=== PATIENT | female | born 1960 | race Caucasian/White ===

== ENCOUNTER 2024-06-27 10:50 | Outpatient (CLI) | payer MEDICARE, SELFPAY ==
--- NOTE | ~2024-06-27 | XR_ITS ---
EXAM: XR lumbar spine 2-3V DATE: 06/27/2024 11:23 HISTORY: back pain and tenderness x yrs . COMPARISON: None available. FINDINGS: 5 nonrib-bearing lumbar-type vertebral bodies. Pedicles intact. Normal vertebral body alig nment. Vertebral body heights preserved. Disc space narrowing and/or marginal osteophytosis at all fredis mbar levels. Vacuum phenomenon at L4-5 and L5-S1. Possible pars defects at L5. Moderate lower lumbar facet hypertrophy and sclerosis. No fracture or dislocation. Atherosclerotic aortic calcification wit hout evident aneurysm IMPRESSION: Multilevel lumbar degenerative disc disease, severe at L4-5 and L5-S1. Moderate lower lum bar facet arthropathy. Possible pars defect at L5, consider confirmation with bilateral obliques of t he lumbar spine. Reviewed, dictated and finalized at location K. R SAFETY INSTRUCTOR IMPRESSION: Multilevel lumbar degenerative disc disease, severe at L4-5 and L5- S1. Moderate lower lumbar facet arthropathy. Possible pars defect at L5, consid er confirmation with bilateral obliques of the lumbar spine.
[2024-06-27 11:18] LABS: Basophils Absolute Auto 0.03 K/mm3 (0.00-0.10); Basophils Percent Auto 0.5 % (0.0-1.0); Eosinophils Absolute Auto 0.07 K/mm3 (0.02-0.50); Eosinophils Percent Auto 1.2 % (1.0-6.0); Hematocrit 44.2 % (35.0-42.0); Hemoglobin 14.8 g/dL (11.7-13.8); Immature Granulocyte Absolute 0.03 K/mm3 (0.00-0.00); Immature Granulocyte Percent A 0.5 % (0.0-0.0); Lymphocytes Absolute Auto 1.83 K/mm3 (1.10-4.50); Lymphocytes Percent Auto 32.6 % (18.0-42.0); Mean Corpuscular HGB Conc 33.5 g/dL (32-36); Mean Corpuscular Hemoglobin 29.2 pg (27.0-31.0); Mean Corpuscular Volume 87.2 fL (78.0-102.0); Mean Platelet Volume 10.8 fl (9.2-11.8); Monocytes Absolute Auto 0.45 K/mm3 (0.10-0.90); Neutrophils Percent Auto 57.2 % (50.0-70.0); Platelet Count Result 244 K/mm3 (150-420); Red Blood Count 5.07 M/mm3 (4.20-5.40); Red Cell Distribution Width 12.7 % (11.6-14.4); White Blood Count 5.6 K/mm3 (4.8-10.8)
[2024-06-27 11:19] LABS: Add Urine Microscopic? YES; Bilirubin Urine Negative (Negative); Blood Urine Trace-intact (Negative); Glucose Urine UA Negative (Negative); Ketones Urine Negative (Negative); Leukocyte Esterase Ur 2+ (Negative); Nitrate Urine Negative (Negative); Protein Urine Trace (Negative); Urobilinogen Urine 0.2 mg/dL (0.2-1.0)
[2024-06-27 11:27] LABS: Appearance Urine Sl Cloudy (Clear); Bacteria Urine 1+ /hpf; Color Urine Yellow (Yellow); RBC Urine 0-2 /hpf (0-2); Squamous Epithelial Cell Urine Many /hpf (Few); WBC Urine 21-30 /hpf (0-3)
[2024-06-27 11:44] LABS: Alanine Aminotransferase 54 U/L (14-59); Alkaline Phosphatase 111 U/L (46-116); Anion Gap 8 mmol/L (4-12); Aspartate Amino Transferase 25 U/L (15-37); Bilirubin,Total 0.6 mg/dL (0.00-1.00); Blood Urea Nitrogen 24 mg/dL (7-18); Carbon Dioxide 33 mmol/L (21-32); Chloride 102 mmol/L (98-108); Cholesterol 261 mg/dL (0-200); Creatine Kinase 185 U/L (26-192); Estimated Glomerular Filt Rate 50; Glucose 110 mg/dL (70-99); HDL Direct 44 mg/dL (40-60); LDL Cholesterol Calculated 162 mg/dL (<130); Osmolality Calculated 301 mOsm/kg (285-295); Potassium 4.2 mmol/L (3.5-5.1); Sodium 143 mmol/L (136-145); Thyroid Stimulating Hormone 4.14 uIU/mL (0.36-3.74); Total Protein 7.5 g/dL (6.4-8.2); Triglycerides 277 mg/dL (0-150)
[2024-06-27 11:45] LABS: CRP < 0.5 mg/dL (0.0-0.9)
--- OUTSIDE RECORDS SUMMARY | 2024-06-27 12:57 | XMS_ITS | Encounter Summary ---
Author Organization [facility] Address [address] [place] [address] Care Team Providers Care Director Semiconductor Name Role Phone Mya Gandhi DO Primary Care Provider [phone] Encounter Details Date Type Department Care Team (Late st Contact Info) Description 06/14/2018 Telephone [facility] [address] [address] [place] [address] Group, [facility] [address] [place] [address] Social History Tobacco Use Types Packs/Day Years Used Date Smoking Tobacco: Never Assessed Sex and Gender Information Value Date Recorded Sex Assigned at Female 09/30/2019 4:07 PM CDT Gender Identity Female 09/30/2019 4:07 PM CDT Sexual Orientation Straight 09/30/2019 4: 07 PM CDT Job Start Date Occupation Industry Not on file Not on file Not on file documented as of this encounter Plan of Treatment Not on file documented as of this encounter Visit Diagnoses Not on filedocumented in this encounter Care Teams Director Semiconductor Relationship Specialty Start Date End Date Mya Gandhi DO [address] [place] [address] [address] PCP - General Family Practice 06/14/18 documented as of this encounter
--- OUTSIDE RECORDS SUMMARY | 2024-06-27 12:57 | XMS_ITS | Encounter Summary ---
Author Organization [facility] Address [address] [place] [address] Care Team Providers Care Motocross Racer Name Role Phone Mya Gandhi DO Primary Care Provider [phone] Encounter Details Date Type Department Care Team (Late st Contact Info) Description 08/03/2019 Telephone [facility] [address] [place] [address] Group, [facility] [address] [place] [address] Social History Tobacco Use Types Packs/Day Years Used Date Smoking Tobacco: Never Smokeless Tobacco: Never Alcohol Use Standard Drinks/Week Comments Yes 0 (1 standard drink = 0.6 oz pur e alcohol) occasionally Inadequate Housing Answer Date Recorded Social Determinants: Housing (Overall Score Help er) 0 12/13/2018 Sex and Gender Information Value Date Recorded Sex Assigned at Female 09/30/2019 4:07 PM CDT Gender Identity Female 09/30/2019 4:07 PM CDT Sexual Orientation Straight 09/30/2019 4: 07 PM CDT Job Start Date Occupation Industry Not on file Not on file Not on file documented as of this encounter Miscellaneous Notes * Telephone Encounter - Marce Giron CMA - 08/04/2019 9:33 AM CDT Called and spoke with patient. Patient wanted medication refill to be sent to [facility]. Refill sentand advised an appointment will be needed for future refills. Patient verbalized understanding. * Telephone Encounter - Ronny Farmer - 08/03/2019 4:19 PM CDT -- DO NOT REPLY / DO NOT REPLY ALL -- -- Message is from the [facility]-- COVID-19 [place] Screening: Negative General Patient Message Reason for Call: patient is returning a call she received from medical hospital sales Maureen Horner and would like a call back Caller Information Type Contact Phone 08/03/2019 04:19 PM Phone (Incoming) Soila Pruitt (Self) [phone] (M) Alternative phone number: none Turnaround time given to caller: This message will be sent to [state Provider's name]. The clinical team will fulfill your request as soon as they review your message when the office opens tomorrow. documented in this encounter Plan of Treatment Not on file documented as of this encounter Visit Diagnoses Not on filedocumented in this encounter Care Teams Motocross Racer Relationship Specialty Start Date End Date Mya Gandhi DO [address] [place], [place] [address]Y [facility] [address] [place] [address] PCP - General Family Practice 06/14/18 documented as of this encounter
--- OUTSIDE RECORDS SUMMARY | 2024-06-27 12:57 | XMS_ITS | Clinical Summary ---
Author Organization [facility] Address [address] [place] [address] Care Team Providers Care Direct Care Worker Name Role Phone Mya Gandhi DO Primary Care Provider [phone] Allergies No known active allergies Medications Medication Sig Dispensed Refills Start Date End Date Status Multiple Vitamins-Minerals (MULTIVITAMIN ADULT PO) A ctive Biotin 1 MG Cap Active [place]-3 Fatty Acids (FISH OIL) 1000 MG capsule Take 2 g by mouth daily. Active loratadine (CLARITIN) 10 MG tablet 12/01/2018 Active atorvastatin (LIPITOR) 20 MG tabletIndications:Mixed hyperlipidemia Take 1 tablet by mouth daily. 90 tablet 1 10/26/2023 Active escitalopram (LEXAPRO) 5 MG tabletIndications:Dysth ymic disorder Take 1 tablet by mouth daily. 90 tablet 1 10/26/2023 Active rosuvastatin (CRESTOR) 20 MG tablet Take 1 tablet by mouth daily. 90 tablet 1 11/01/2023 Active hydroCHLOROthiazide 25 MG tabletIndications:Essen tial hypertension Take 1 tablet by mouth daily. 90 tablet 04/21/2024 Active buPROPion XL (WELLBUTRIN XL) 150 MG 24 hr tabletIndications:Dysth ymic disorder Take 1 tablet by mouth daily. 90 tablet 1 05/08/2024 Active Active Problems Problem Noted Date Diagnosed Date Obesity (BMI 30-39.9) 08/17/2018 Mixed hyperlipidemia 08/17/2018 Essential hypertension 06/28/2018 Dysthymic disorder 06/28/2018 Adult ADHD (attention deficit hyperactivity diso rder) 08/31/1979 Encounters Date Type Department Care Team Description 05/12/2024 Refill [facility] [place] [address] [address] Mya Gandhi, DO Refill Request 05/08/2024 Refill [facility] [address] [address] Mya Gandhi, DO Refill Request 04/21/2024 Refill [facility] [address] [phone] Mya Gandhi, DO Refill Request from Last 3 Months Immunizations Name Administration Dates Next Due COVID Moderna 0.5 mL 12Y+ 05/29/2020,05/01/2020 Influenza, split virus, quadrivalent, PF 023,03/12/2022 Influenza, split virus, trivalent, PF 01/31/2017 Influenza, unspecified formulation 01/31/2017 Tdap 05/03/2012 Zoster recombinant 12/15/2020 Surgical History Surgery Date Site/Laterality Comments HYSTERECTOMY FINGER SURGERY Medical History Medical History Date Comments Adhd Family History Medical History Relation Comments Cancer, Lung Father Cancer, Pancreatic Father Cancer, Prostate Father Cancer, Breast Paternal Grandmother Relation Status Comments Brother Father Maternal Grandfather Maternal Grandmother Mother Alive Paternal Grandmother Social History Tobacco Use Types Packs/Day Years Used Date Smoking Tobacco: Never Smokeless Tobacco: Never Tobacco Cessation:Counseling Given: No Alcohol Use Standard Drinks/Week Comments Yes 0 (1 standard drink = 0.6 oz pur e alcohol) occasionally PHQ-2 Answer Date Recorded Initial depression screening score: 0 02/08/2023 Inadequate Housing Answer Date Recorded Social Determinants: Housing (Overall Score Help er) 0 12/13/2018 Sex and Gender Information Value Date Recorded Sex Assigned at Female 09/30/2019 4:07 PM CDT Gender Identity Female 09/30/2019 4:07 PM CDT Sexual Orientation Straight 09/30/2019 4: 07 PM CDT Job Start Date Occupation Industry Not on file Not on file Not on file Obstetrics History Last Filed Vital Signs Vital Sign Reading Time Taken Comments Blood Pressure 134/85 10/26/2023 10:57 AM CDT Pulse 78 10/26/2023 10:57 AM CDT Temperature 36.2 C (97.2 F) 10/26/2023 10:57 AM CDT Respiratory Rate 16 08/26/2022 2:19 PM CDT Oxygen Saturation 98% 10/26/2023 10:57 AM CDT Inhaled Oxygen Concentration - - Weight 89.1 kg (196 lb 8.6 oz) 10/26/2023 10:57 AM CDT Height 154.9 cm (5' 1 ) 10/26/2023 10:57 AM CDT Body Mass Index 37.14 10/26/2023 10:57 AM CDT Plan of Treatment Health Maintenance Due Date Last Done Comments Breast Cancer Screening 1998 CT Colonography 2003 Cologuard 2003 Colonoscopy 2003 Colorectal Cancer Screening 2003 Fecal Occult Blood 2003 Sigmoidoscopy 2003 Pneumococcal Vaccine 50+ (1 of 1 - PCV) 02/18/2008 Shingles Vaccine (2 of 2) 02/09/2021 12/15/2020 DTaP/Tdap/Td Vaccine (2 - Td or Tdap) 05/03/2022 05/03/2012 Osteoporosis Screening 2023 COVID-19 Vaccine (3 - season) 2024 05/29/2020, 05/01/2020 Influenza Vaccine (#1) 2024 , 03/12/2022, 01/31/2017, Additional history exists Traditional Medicare- Medicare Wellness Visit 02/01/2024 02/08/2023 Depression Screening 02/09/2024 02/08/2023 Respiratory Syncytial Virus (RSV) Vaccine 60+ (1 - 1-dose 75+ series) 2033 Hepatitis C Screening Completed 12/25/2021 HPV Vaccine Aged Out No longer eligi ble based on patient's age to complete this topic Hepatitis A Vaccine Aged Out No longe r eligible based on patient's age to complete this topic Hepatitis B Vaccine (For Physician/APC Discussion) Aged Out No longer elig ible based on patient's age to complete this topic Meningococcal Serogroup B Vaccine Aged Out No longer eligible based on patient's age to complete this topic Meningococcal Vaccine Aged Out No bipin tone eligible based on patient's age to complete this topic Procedures Procedure Name Priority Date/Time Associated Diagnosis Comments HEPATITIS C ANTIBODY WITH REFLEX Routine 12/25/2021 11:21 AM CDT Need for hepatitis C screening test from Last 3 Months or Most Recently Relevant to Health Maintenance Results * Hepatitis C Antibody With Reflex (12/25/2021 11:21 AM CDT) Hepatitis C Antibody Negative Negative 12/25/2021 8:02 PM CDT [facility] [place] [facility] Blood VENOUS BLOOD SPECIMEN / Unknown Venipuncture / Unknown 12/25/2021 11:21 AM CDT 12/25/2021 11:21 AM CDT Mya Gandhi DO BKR LAB BLOOD ORDERA BLES [facility] [place] [facility] [address] [place] [address] from Last 3 Months or Most Recently Relevant to Health Maintenance Care Teams Direct Care Worker Relationship Specialty Start Date End Date Mya Gandhi DO [address] [place] [address] [address] [facility] [address] [place] [address] PCP - General Family Practice 06/14/18
--- OUTSIDE RECORDS SUMMARY | 2024-06-27 12:57 | XMS_ITS | Encounter Summary ---
Author Organization [facility] Address [address] [place] [address] Care Team Providers Care Putty Glazer Name Role Phone Mya Gandhi DO Primary Care Provider Encounter Details Date Type Department Care Team (Late st Contact Info) Description 11/29/2018 Telephone [facility] [address] [facility] [address] [place] [address] Group, [facility] [address] [place] [address] Social History Tobacco Use Types Packs/Day Years Used Date Smoking Tobacco: Never Smokeless Tobacco: Never Alcohol Use Standard Drinks/Week Comments Yes 0 (1 standard drink = 0.6 oz pur e alcohol) occasionally Sex and Gender Information Value Date Recorded [...] on filedocumented in this encounter Care Teams Putty Glazer Relationship Specialty Start Date End Date Mya Gandhi DO [facility] [address] [place] [address] PCP - General Family Practice 06/14/18 documented as of this encounter
--- OUTSIDE RECORDS SUMMARY | 2024-06-27 12:57 | XMS_ITS | Encounter Summary ---
Author Organization [facility] Address [address] [place] [address] Care Team Providers Care Feather Baler Name Role Phone Mya Gandhi DO Primary Care Provider [phone] Encounter Details Date Type Department Care Team (Late st Contact Info) Description 11/14/2018 Telephone [facility] [address] [place] [address] Group, [facility] [address] [place] [address] Social History Tobacco Use Types Packs/Day Years [...] encounter Miscellaneous Notes * Telephone Encounter - Torri Aguilar - 11/14/2018 1:46 PM CDT -- Message is from the [facility]-- Reason for Call: missed call please call back Caller Information Type Contact Phone 11/14/2018 01:46 PM Phone (Incoming) Soila Pruitt (Self) [phone] (M) Alternative phone number: na Turnaround time given to caller: This message will be sent to [state Provider's name]. The clinical team will fulfill your request as soon as they review your message. documented in this encounter Plan of Treatment Not on file documented as of this encounter Visit Diagnoses Not on filedocumented in this encounter Care Teams Feather Baler Relationship Specialty Start Date End Date Mya Gandhi DO [address] [place] [address] PCP - General Family Practice 06/14/18 documented as of this encounter
--- OUTSIDE RECORDS SUMMARY | 2024-06-27 12:57 | XMS_ITS | Referral Summary ---
Author Organization [facility] Address [address] [place] [address] Care Team Providers Care Windows Admin Name Role Phone Mya Gandhi DO Primary Care Provider [phone] Encounters Date Type Department Care Team Description 05/12/2024 Refill [facility] [address] [phone] Mya Gandhi DO Refill Request 05/08/2024 Refill [facility] [address] [phone] Mya Gandhi DO Refill Request 04/21/2024 Refill [facility] [address] [phone] Mya Gandhi DO Refill Request from Last 3 Months Allergies No known active allergies Medications Medication Sig Dispensed Refills Start Date End Date Status Multiple Vitamins-Minerals (MULTIVITAMIN ADULT PO) A ctive Biotin 1 MG Cap Active [place]-3 Fatty Acids (FISH OIL) 1000 MG capsule [...] ADHD (attention deficit hyperactivity diso rder) 08/31/1979 Immunizations Name Administration Dates Next Due COVID Moderna 0.5 mL 12Y+ 05/29/2020,05/01/2020 Influenza, split virus, quadrivalent, PF 023,03/12/2022 Influenza, split virus, trivalent, PF 01/31/2017 Influenza, unspecified formulation 01/31/2017 Tdap 05/03/2012 Zoster recombinant 12/15/2020 Social History Tobacco Use Types Packs/Day Years [...] file Not on file Not on file Last Filed Vital Signs Vital Sign Reading [...] Mass Index 37.14 10/26/2023 10:57 AM CDT Functional Status Functional Status Response Date of Assess ment RETIRED Are you deaf or do y ou have serious difficulty hearing? No 07/13/2022 RETIRED Are you blind or do you have serious difficulty seeing, even when wearing glasses? No 07/13/2022 Do you have serious difficul ty walking or climbing stairs? No 07/13/2022 Do you have difficulty dressing or bathing? No 07/13/2022 Cognitive Status Response Date of Assessm ent Because of a physical, menta l, or emotional condition, do you have serious difficulty concentrating, remembering or making decisions? No 07/13/2022 Plan of Treatment Not on file Procedures Procedure Name Priority Date/Time Associated Diagnosis [...] DO BKR LAB BLOOD ORDERA BLES [facility] [place] [facility] [address] [place] [address] from Last 3 Months or Most Recently Relevant to Health Maintenance Care Teams Windows Admin Relationship Specialty Start Date End Date Mya Gandhi DO [address] [place] [address] [address] [place] [address] PCP - General Family Practice 06/14/18
--- OUTSIDE RECORDS SUMMARY | 2024-06-27 12:57 | XMS_ITS | Encounter Summary ---
Author Organization [facility] Address [address] [place] [address] Care Team Providers Care Junior Analyst Name Role Phone Mya Gandhi DO Primary Care Provider [phone] Encounter Details Date Type Department Care Team (Late st Contact Info) Description 08/20/2022 E-Advice [facility] [address] [place] [address] Mychart, Patient Portal Colon Cancer Screening Social History Tobacco Use Types Packs/Day Years Used Date Smoking Tobacco: Never Smokeless Tobacco: Never Alcohol Use Standard Drinks/Week Comments Yes 0 (1 standard drink = 0.6 oz pur e alcohol) occasionally PHQ-2 Answer Date Recorded Initial depression screening score: 0 07/13/2022 Inadequate Housing Answer Date Recorded Social Determinants: Housing (Overall Score Help er) 0 12/13/2018 Sex and Gender Information Value Date Recorded Sex Assigned at Female 09/30/2019 4:07 PM CDT Gender Identity Female 09/30/2019 4:07 PM CDT Sexual Orientation Straight 09/30/2019 4: 07 PM CDT Job Start Date Occupation Industry Not on file Not on file Not on file documented as of this encounter Functional Status Functional Status Response Date of [...] concentrating, remembering or making decisions? No 07/13/2022 documented as of this encounter Plan of Treatment Not on file documented as of this encounter Visit Diagnoses Not on filedocumented in this encounter Care Teams Junior Analyst Relationship Specialty Start Date End Date Mya Gandhi DO [address] [place] [address] PCP - General Family Practice 06/14/18 documented as of this encounter
--- OUTSIDE RECORDS SUMMARY | 2024-06-27 12:57 | XMS_ITS | Encounter Summary ---
Author Organization [facility] Address [address] [place] [address] Care Team Providers Care Marketing Ambassador Name Role Phone Mya Gandhi DO Primary Care Provider [phone] Encounter Details Date Type Department Care Team (Late st Contact Info) Description 08/31/2022 E-Advice [facility] [address] [place] [address] Mychart, Patient Portal Breast Cancer Screening Social History Tobacco Use Types [...] on filedocumented in this encounter Care Teams Marketing Ambassador Relationship Specialty Start Date End Date Mya Gandhi DO [address] [place] [address] PCP - General Family Practice 06/14/18 documented as of this encounter
--- OUTSIDE RECORDS SUMMARY | 2024-06-27 12:57 | XMS_ITS | Encounter Summary ---
Author Organization [facility] Address [address] [place] [address] Care Team Providers Care Operations Supervisor 2Nd Shift Name Role Phone Mya Gandhi DO Primary Care Provider [phone] Encounter Details Date Type Department Care Team (Late st Contact Info) Description 07/07/2022 E-Advice [facility] [address] [place] [phone] Liset, Patient Portal Colonoscopy Order Social History Tobacco Use Types Packs/Day Years Used Date Smoking Tobacco: Never Smokeless Tobacco: Never Alcohol Use Standard Drinks/Week Comments Yes 0 (1 standard drink = 0.6 oz pur e alcohol) occasionally PHQ-2 Answer Date Recorded PHQ-2 Score 0 07/22/2020 Inadequate Housing Answer Date Recorded Social Determinants: [...] on filedocumented in this encounter Care Teams Operations Supervisor 2Nd Shift Relationship Specialty Start Date End Date Mya Gandhi DO [address] [place] [address] [address] [facility] [address] [place] [address] PCP - General Family Practice 06/14/18 documented as of this encounter
[2024-06-27 14:07] LABS: Hemoglobin A1C 5.7 % (<5.7)
== END 2024-06-27 10:51 | disposition home or self-care (01) ==
LOC: CHSLAB 10:58
PROVIDERS: PCP Internal Medicine; Visit Provider Internal Medicine
DX: I10 Essential (primary) hypertension (principal); M54.50 Low back pain, unspecified; E78.5 Hyperlipidemia, unspecified; R73.01 Impaired fasting glucose
CPT/HCPCS: 36415; 72100; 80053; 80061; 81001; 82550; 83036; 84443; 85025; 86140

== ENCOUNTER 2024-06-29 11:50 | Outpatient (CLI) | payer MEDICARE, SELFPAY ==
[2024-06-29 12:13] LABS: Add Urine Microscopic? NO; Appearance Urine Clear (Clear); Bilirubin Urine Negative (Negative); Blood Urine Trace-intact (Negative); Color Urine Light Yellow (Yellow); Glucose Urine UA Negative (Negative); Ketones Urine Negative (Negative); Leukocyte Esterase Ur Negative (Negative); Nitrate Urine Negative (Negative); Protein Urine Negative (Negative); Urobilinogen Urine 0.2 mg/dL (0.2-1.0); pH Urine 5.5 (5.0-8.0)
== END 2024-06-29 11:51 | disposition home or self-care (01) ==
PROVIDERS: PCP Internal Medicine; Visit Provider Internal Medicine
DX: Z12.31 Encounter for screening mammogram for malignant neoplasm of breast (principal); Z78.0 Asymptomatic menopausal state; R92.8 Other abnormal and inconclusive findings on diagnostic imaging of breast; N39.0 Urinary tract infection, site not specified
CPT/HCPCS: 77063; 77067; 77080; 81003; 87086

== ENCOUNTER 2024-07-06 09:01 | Outpatient (CLI) | payer MEDICARE, SELFPAY ==
--- NOTE | ~2024-07-06 | MMUS_ITS ---
EXAMINATION: MM diagnostic jaylen BI w guevara, US breast BI limited HISTORY: Left breast mass, right breast asymmetry TECHNIQUE: Additional 3-D tomosynthesis images of the breasts were performed and synthetic 2-D images were generated. CAD analysis was submitted and interpreted. High resolution limited bilateral breast ultrasound was performed. COMPARISON: 06/29/2024 BREAST PARENCHYMAL COMPOSITION:Not Dense. There are scattered areas of fibroglandular density. FINDINGS: MAMMOGRAPHIC FINDINGS: Spot compression views demonstrate persistent 1.6 cm mass at the upper left breast. There are probabl e 2 small masses at the upper, inner left breast measuring approximately 4 mm in diameter each. Spot compression view of the right breast demonstrate possible persistent area of distortion at the u pper, inner right breast. ULTRASOUND: At the left breast 12:00 position near the nipple, there is a 1.5 x 1.3 x 0.7 cm cyst with minimal in ternal debris/echoes. This is well-circumscribed and parallel in orientation, with posterior through transmission. At the 9:00 position left breast, near the nipple, there is a 4 mm probable complex cys t with internal septations. There is a 2 mm hypoechoic focus at the 10:00 position left breast near t he nipple with possible posterior shadowing versus edge artifact. At the right breast 2:00 periareolar region, there is a 6 mm simple anechoic cyst. At the 9 cartilage in the right breast, 2 cm from the nipple, there is a 6 x 7 x 4 mm hypoechoic parallel oval mass. At the right breast 8:00 position, 5 cm from the nipple, there is a 7 x 4 x 4 mm hypoechoic well-circum scribed mass. There is an additional 4 mm probable cyst at the 8:00 position right breast, 5 cm from the nipple. IMPRESSION: Possible persistent area of distortion at the upper, inner right breast. Breast MRI recommended to b est exclude any suspicious underlying enhancing lesion. Additional bilateral multiple subcentimeter oval hypoechoic masses which are probably benign. Six-mon follow-up ultrasound recommended for these findings. BI-RADS Category 0: Incomplete: Needs additional imaging evaluation. Reviewed, dictated and finalized at location . L HARDENER IMPRESSION: Possible persistent area of distortion at the upper, inner right breast. Breas t MRI recommended to best exclude any suspicious underlying enhancing lesion. Additional bilateral multiple subcentimeter oval hypoechoic masses which are pr obably benign. Six-month follow-up ultrasound recommended for these findings. BI-RADS Category 0: Incomplete: Needs additional imaging evaluation.
--- NOTE | ~2024-07-06 | CT_ITS ---
CLINICAL INDICATION: Right-sided abdominal pain extending into the pelvis with microhematuria COMPARISON: None no. TECHNIQUE: Multiple contiguous axial images of the abdomen and pelvis were performed without the admi nistration of intravenous contrast The dose-length product (DLP) was 353.26 mGy-cm. Automated exposure control and iterative reconstruction technique were employed. FINDINGS/OBSERVATIONS: Visualized lower thorax: The bilateral lung bases are clear. The heart is of normal size, without pericardial effusion. Small hiatal hernia is present. Liver: The liver demonstrates homogeneous attenuation and is not enlarged measuring 18 cm in longitudinal di mension. Gallbladder and biliary system: The gallbladder is only minimally distended, and otherwise unremarkable. Pancreas: Limited evaluation of the pancreas secondary to the lack of intravenous contrast. Spleen: The spleen demonstrates homogeneous attenuation and is within the upper limits of normal for size [place] 12 cm in longitudinal dimension. Kidneys: The bilateral kidneys are unremarkable, without hydronephrosis or renal calculi. Adrenal glands: Unremarkable. Gastrointestinal tract: Colonic diverticulosis without surrounding inflammatory change. Appendix: The appendix is not definitively visualized. However, no pericecal inflammatory change is identified suggest the presence of acute appendicitis. Vasculature: Unremarkable. Lymph nodes: Limited evaluation without intravenous contrast. Pelvic structures: The bladder is decompressed, limiting its evaluation. No surrounding inflammatory change is present. The uterus is either atrophic or surgically absent. Body wall and musculoskeletal: Small fat-containing umbilical hernia. Trace degenerative disease within the lumbosacral spine with disc space narrowing and vacuum phenomen a. Facet arthropathy is also noted. No acute compression fracture. IMPRESSION: No obstructive uropathy. Limited evaluation of the bladder secondary to underdistention. Reviewed, dictated and finalized at location A. SEAT UPHOLSTERER
== END 2024-07-06 09:02 | disposition home or self-care (01) ==
LOC: CHSIMG 09:03
PROVIDERS: PCP Internal Medicine; Visit Provider Internal Medicine
DX: R31.9 Hematuria, unspecified (principal); R92.8 Other abnormal and inconclusive findings on diagnostic imaging of breast
CPT/HCPCS: 74176; 76642; 77062; 77066; G0279

== ENCOUNTER 2024-07-21 14:12 | Outpatient (CLI) | payer MEDICARE, SELFPAY ==
--- NOTE | ~2024-07-21 | MR_ITS ---
EXAMINATION: MR breast BI wo/w con INDICATION: Possible architectural distortion within the upper inner right breast described on mamm ography performed 06/29/2024 which persisted on spot compression. TECHNIQUE: Axial VIBRANT pre and dynamic post contrast, Sagittal VIBRANT post contrast, Axial T2 STIR ASSET COMPARISON: Mammography performed 07/06/2024 and dating back to 06/29/2024 CONTRAST: ProHance, 18 cc BREAST COMPOSITION: Scattered fibroglandular tissue FINDINGS: RIGHT BREAST: There is mild background parenchymal enhancement. Abnormal enhancement kinetics is iden tified within the central right breast approximately 5 cm from the nipple corresponding with the abno rmality seen on ultrasound for which ultrasound-guided biopsy is suggested. No additional abnormal contrast enhancement or abnormal enhancement kinetics is appreciated within th e right breast to correspond to the area of mammographic concern. LEFT BREAST: There is mild background parenchymal enhancement. No abnormal enhancement is present aft er contrast administration. No pathologically enlarged or morphologically suspicious axillary or inte rnal mammary lymph nodes are identified. IMPRESSION: Abnormal enhancement kinetics within the central right breast approximately 5 cm from the nipple shantal esponding with the abnormality seen on ultrasound at the 8:00 position for which ultrasound-guided bi opsy is suggested. No abnormal enhancement kinetics within the area of prior mammographic concern. BI-RADS category 4, suspicious findings. Reviewed, dictated and finalized at location A. IMPRESSION: Abnormal enhancement kinetics within the central right breast approximately 5 c m from the nipple corresponding with the abnormality seen on ultrasound at the 8:00 position for which ultrasound-guided biopsy is suggested. No abnormal enhancement kinetics within the area of prior mammographic concern. BI-RADS category 4, suspicious findings.
== END 2024-07-21 14:13 | disposition home or self-care (01) ==
PROVIDERS: PCP Internal Medicine; Visit Provider Internal Medicine
DX: R92.8 Other abnormal and inconclusive findings on diagnostic imaging of breast (principal)
CPT/HCPCS: 77049; A9579; C8908

== ENCOUNTER 2024-08-21 12:58 | Outpatient (CLI) | payer MEDICARE, SELFPAY | END 2024-08-21 12:59 | disposition home or self-care (01) | LOC: CHSAUDIO 13:00 | PROVIDERS: PCP Internal Medicine; Visit Provider Internal Medicine | DX: H90.3 Sensorineural hearing loss, bilateral (principal) | CPT/HCPCS: 92557; 92567 ==